=== PATIENT | female | born 1960 | race Two or more races ===

== ENCOUNTER 2017-03-30 07:18 | Emergency (ER) | payer OTHER ==
[~2017-03-30] VITALS: Ht 162.6 cm; Wt 79.4 kg
[~2017-03-30 07:18] MED LIST: PROZAC; QUET25TA37
[2017-03-30 07:55] VITALS: BP 139/104
[2017-03-30] MEDS ORDERED: ONDANSETRON HCL 4 MG/2 ML VIAL IM ONE (08:15)
[2017-03-30] MEDS ORDERED: HYDROmorphone HCL 2 MG/ML VL IM ONE (08:15)
== END 2017-03-30 10:14 | disposition home or self-care (01) ==
LOC: ER 07:18
DX: S20.219A Contusion of unspecified front wall of thorax, initial encounter (principal); S20.222A Contusion of left back wall of thorax, initial encounter; F17.210 Nicotine dependence, cigarettes, uncomplicated; W51.XXXA Accidental striking against or bumped into by another person, initial encounter; Y93.89 Activity, other specified; Y99.8 Other external cause status; Y92.89 Other specified places as the place of occurrence of the external cause
CPT/HCPCS: 71111; 72110; 81002; 96372; 99284; J1170; J2405

== ENCOUNTER 2018-05-01 08:40 | Emergency (ER) | payer OTHER ==
[~2018-05-01] VITALS: Ht 167.6 cm; Wt 79.4 kg
[2018-05-01 08:53] VITALS: BP 143/99
[2018-05-01] MEDS ORDERED: LORazepam 2MG/ML-1ML VIAL IM ONE (10:00)
[2018-05-01] MEDS ORDERED: LIDOCAINE W/ EPINEPHRINE 1 % INJ 30ML ONE (10:45)
== END 2018-05-01 11:15 | disposition home or self-care (01) ==
LOC: ER 08:40
DX: L02.413 Cutaneous abscess of right upper limb (principal); F12.10 Cannabis abuse, uncomplicated; F17.210 Nicotine dependence, cigarettes, uncomplicated; M19.90 Unspecified osteoarthritis, unspecified site; Z98.51 Tubal ligation status
CPT/HCPCS: 10060; 73090; 87205; 99284; J2001